=== PATIENT | female | born 1995 | race African-American/Black ===

== ENCOUNTER 2018-02-19 20:51 | Observation (INO) | payer OTHER ==
[~2018-02-19] VITALS: Ht 170.2 cm; Wt 71.4 kg
[~2018-02-19 20:51] MED LIST: CONCERTA PO; CYCL10TA9 PO; HYDR-3600 PO; HYDR1TAB8 OP; IBUP800T26 PO; LAMO200T14 PO; MINO100C2 PO; NALTREXONE PO; QTP100T PO; SERT25TA PO; SULF-222 PO; TRAZ150T42 PO; ZPR20C PO
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
[2018-02-19] MEDS ORDERED: KETOROLAC 30 MG/ML VIAL IVP ONE (21:15)
[2018-02-19] MEDS ORDERED: fentaNYL INJECTION 100 MCG/2 ML AMP IVP ONE (21:15)
[2018-02-19 21:16] LABS: BASOPHILS # (AUTO) 0.1 10^3/uL (0.0-0.1); BASOPHILS % (AUTO) 1 % (0-10); EOSINOPHILS # (AUTO) 0.2 10^3/uL (0.0-0.3); EOSINOPHILS % (AUTO) 2 % (0-10); HEMATOCRIT 37 % (35-52); HEMOGLOBIN 13.1 G/DL (11.5-16.0); LYMPHOCYTES # (AUTO) 3.5 X 10^3 (1.0-4.0); LYMPHOCYTES % (AUTO) 36 % (12-44); MEAN CORPUSCULAR HEMOGLOBIN 34 PG (25-34); MEAN CORPUSCULAR HGB CONC 35 G/DL (32-36); MEAN CORPUSCULAR VOLUME 96 FL (80-99); MEAN PLATELET VOLUME 10.6 FL (7.4-10.4); MONOCYTES # (AUTO) 0.6 X 10^3 (0.0-1.0); MONOCYTES % (AUTO) 6 % (0-12); NEUTROPHILS # (AUTO) 5.5 X 10^3 (1.8-7.8); NEUTROPHILS % (AUTO) 56 % (42-75); PLATELET COUNT 301 10^3/uL (130-400); RED BLOOD COUNT 3.91 10^6/uL (4.35-5.85); RED CELL DISTRIBUTION WIDTH 13.7 % (10.0-14.5); WHITE BLOOD COUNT 9.9 10^3/uL (4.3-11.0)
[2018-02-19] MEDS ORDERED: IOHEXOL 350 MG/ML 100 ML (OMNIPAQUE 350) VIAL IV ONE (21:30)
[2018-02-19] MEDS ORDERED: NS 100 ML (IVPB) BAG IV ONE (21:30)
[2018-02-19] MEDS ORDERED: oxyCODONE/APAP 5/325MG (PERCOCET 5) TABLET PO ONE (23:00)
[2018-02-19] MEDS ORDERED: fentaNYL INJECTION 100 MCG/2 ML AMP IVP PRN (23:00)
[2018-02-20] VITALS (7 sets, daily range): BP systolic 97–112; BP diastolic 52–74
[2018-02-20] MEDS ORDERED: ONDANSETRON 4 MG/2 ML (SDV) Z0FRAN IV PRN (00:30)
[2018-02-20] MEDS: NS IV 1000 ML 1,000 ML IV SCH ×2 (01:05→10:13)
[2018-02-20] MEDS: oxyCODONE/APAP 5/325MG (PERCOCET 5) TABLET PO SCH ×4 (01:21→12:38)
[2018-02-20] MEDS: fentaNYL INJECTION 100 MCG/2 ML AMP IV PRN ×2 (01:30→06:41)
[2018-02-20] MEDS ORDERED: RT-ALBUTEROL SULF 2.5 MG/3 ML PRE-MIX VIAL INH PRN (01:30)
[2018-02-20] MEDS ORDERED: RT-ALBUTEROL SULF 2.5 MG/3 ML PRE-MIX VIAL INH SCH (08:00)
--- NOTE | 2018-02-20 08:33 | Diagnostic Imaging Report ---
PROCEDURE: CT chest, abdomen, and pelvis with contrast. TECHNIQUE: Multiple contiguous axial images were obtained through the chest, abdomen, and pelvis after the administration of intravenous contrast. INDICATION: Left-sided chest and abdominal pain after trauma. COMPARISON: None available. FINDINGS: CHEST: Normal thyroid. No subclavicular axillary lymphadenopathy. No evidence of mediastinal hemorrhage. No mediastinal or hilar lymphadenopathy. Normal heart size without pericardial effusion. Normal caliber thoracic aorta without evidence of acute traumatic injury. No pleural effusion or pneumothorax. No pulmonary consolidations to indicate laceration or contusion. There are acute fractures of the anterior left 8th through 10th ribs which are mildly displaced. No additional acute rib fracture. ABDOMEN AND PELVIS: No free intraperitoneal air or fluid. The liver and spleen enhance normally without evidence of subcapsular hematoma or laceration. The adrenals, gallbladder, and pancreas are normal. The kidneys enhance symmetrically without evidence of traumatic injury. Postcontrast imaging demonstrates opacification of normal caliber ureters and the urinary bladder without evidence of ureteral injury or bladder rupture. No dilated loops of bowel. Normal caliber bowel aorta without evidence of retroperitoneal hemorrhage. No abdominal or pelvic lymphadenopathy. No acute fracture of the pelvis or proximal femurs. THORACOLUMBAR SPINE: No acute fracture or traumatic malalignment. IMPRESSION: 1. Acute mildly displaced fractures of the anterior left 8th through 10th ribs. 2. No pneumothorax, pleural effusion, or pulmonary contusion. 3. No acute traumatic injury in the abdomen or pelvis. Specifically, no splenic laceration or subcapsular hematoma. 4. Findings are in agreement with the preliminary report. Dictated by: Dictated on workstation # [id number]
--- NOTE | 2018-02-20 09:17 | Diagnostic Imaging Report ---
INDICATION: Rib fracture. FINDINGS: Heart size is normal. Lungs are clear. There is no pleural effusion or pneumothorax. Mediastinum is unremarkable. There are fractures of the left eighth, ninth and 10th ribs anterolaterally. IMPRESSION: No acute cardiopulmonary abnormality. Fractures of the left eighth through 10th ribs anterolaterally. Dictated by: Dictated on workstation # [id number]
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
[2018-02-20] MEDS ORDERED: IBUPROFEN 800 MG (MOTRIN) TAB PO SCH (13:00)
[2018-02-20] MEDS ORDERED: HYDR-34 PO (13:34)
--- NOTE | 2018-02-20 13:36 | Discharge Inst-Surgical ---
D/C Lap Instructions-JOLENE New, Converted, or Re-Newed RX: RX on Chart Follow Up Appt in 2 weeks F/U CXR around 2 weeks. Activity as tolerated No driving for 24 hours No driving while on pain medications Incentive Spirometry use every 2 hours while awake Regular Diet Symptoms to Report: Fever over 101 degree F, Nausea/Vomiting Infection Signs and Symptoms to report: Increased redness, Foul odor of wound, Increased drainage Bathing instructions: May shower Operative Area Clean/Dry; Keep incision clean/dry If any problems/questions: Contact your physician or go to Emergency Room JAKOB FERNÁNDEZ MD Feb 20, 2018 1:36 pm
--- NOTE | 2018-02-21 12:51 | Physician Query-Final Dx ---
LUISA GALVEZ 02/21/18 1251: Final Diagnosis Give Final Diagnosis Please give Final Diagnosis JAKOB FERNÁNDEZ MD 02/21/18 1328: Final Diagnosis Give Final Diagnosis trauma-left rib fx 8-10. LUISA GALVEZ Feb 21, 2018 12:51 JAKOB FERNÁNDEZ MD Feb 21, 2018 13:28
== END 2018-02-20 13:35 | disposition home or self-care (01) ==
LOC: EDUNIT# 20:51 → ER 20:53 → 4TH 20:54 → UNDOADMOB 22:45 → 4TH 22:45 → UNDODISOB 02-20 14:40
PROVIDERS: ADMIT Surgery; ATTEND Surgery
DX: S22.41XA Multiple fractures of ribs, right side, initial encounter for closed fracture (principal); Z72.89 Other problems related to lifestyle; F12.90 Cannabis use, unspecified, uncomplicated; F41.9 Anxiety disorder, unspecified; F31.9 Bipolar disorder, unspecified; W16.132A Fall into natural body of water striking side causing other injury, initial encounter; Y92.64 Mine or pit as the place of occurrence of the external cause; Y93.19 Activity, other involving water and watercraft
CPT/HCPCS: 36415; 71046; 71260; 74177; 80320; 84703; 85025; 94640; 94664; 94760; 96374; 96375; 96376; G0378

== ENCOUNTER 2018-08-20 14:22 | Emergency (ER) | payer OTHER ==
[~2018-08-20] VITALS: Ht 170.2 cm; Wt 68.0 kg
[~2018-08-20 14:22] MED LIST changes: +HYDR-34 PO
[2018-08-20] MEDS ORDERED: NS IV 1000 ML 1,000 ML IV SCH (14:30)
[2018-08-20 14:37] LABS: BASOPHILS % (AUTO) 0 % (0-10); EOSINOPHILS % (AUTO) 0 % (0-10); HEMATOCRIT 38 % (35-52); HEMOGLOBIN 12.8 G/DL (11.5-16.0); LYMPHOCYTES # (AUTO) 3.2 X 10^3 (1.0-4.0); LYMPHOCYTES % (AUTO) 32 % (12-44); MEAN CORPUSCULAR HEMOGLOBIN 32 PG (25-34); MEAN CORPUSCULAR HGB CONC 34 G/DL (32-36); MEAN CORPUSCULAR VOLUME 93 FL (80-99); MEAN PLATELET VOLUME 10.2 FL (7.4-10.4); MONOCYTES # (AUTO) 0.7 X 10^3 (0.0-1.0); MONOCYTES % (AUTO) 7 % (0-12); NEUTROPHILS # (AUTO) 5.8 X 10^3 (1.8-7.8); NEUTROPHILS % (AUTO) 60 % (42-75); PLATELET COUNT 302 10^3/uL (130-400); RED CELL DISTRIBUTION WIDTH 13.9 % (10.0-14.5); WHITE BLOOD COUNT 9.8 10^3/uL (4.3-11.0)
[2018-08-20 15:00] LABS: ALANINE AMINOTRANSFERASE 14 U/L (0-55); ALBUMIN 4.6 GM/DL (3.2-4.5); ALKALINE PHOSPHATASE 75 U/L (40-136); BILIRUBIN,TOTAL 0.9 MG/DL (0.1-1.0); BUN/CREATININE RATIO 11; CALCIUM 9.6 MG/DL (8.5-10.1); CARBON DIOXIDE 22 MMOL/L (21-32); CHLORIDE 105 MMOL/L (98-107); GFR ESTIMATED > 60; GLUCOSE 113 MG/DL (70-105); SALICYLATE < 5.0 MG/DL (5.0-20.0); SODIUM 141 MMOL/L (135-145); TOTAL PROTEIN 8.1 GM/DL (6.4-8.2)
[2018-08-20] MEDS ORDERED: LORazepam INJ 2 MG/ML (ATIVAN) VIAL IVP ONE (15:00)
[2018-08-20 15:14] LABS: ACETAMINOPHEN < 10 UG/ML (10-30)
[2018-08-20] MEDS ORDERED: KCL 20 MEQ TAB (K-DUR) PO ONE (16:00)
[2018-08-20 16:47] LABS: BILIRUBIN,URINE NEGATIVE (NEGATIVE); CLARITY,URINE CLEAR; COLOR,URINE YELLOW; GLUCOSE, URINE (UA) NEGATIVE (NEGATIVE); KETONES,URINE 2+ (NEGATIVE); LEUKOCYTE ESTERASE ,URINE NEGATIVE (NEGATIVE); NITRITE,URINE NEGATIVE (NEGATIVE); PH,URINE 6.5 (5-9); PROTEIN,URINE 1+ (NEGATIVE); UROBILINOGEN,URINE NORMAL (NORMAL)
[2018-08-20 16:49] LABS: HCG,QUALITATIVE URINE NEGATIVE (NEGATIVE)
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
[2018-08-20 16:57] LABS: BACTERIA,URINE NEGATIVE /HPF; RBC,URINE 0-2 /HPF; SQUAMOUS EPITHELIAL CELL,UR 0-2 /HPF
[2018-08-20 16:58] LABS: AMPHETAMINE SCREEN, URINE POSITIVE (NEGATIVE); BARBITURATE SCREEN URINE NEGATIVE (NEGATIVE); BENZODIAZEPINES SCREEN URINE NEGATIVE (NEGATIVE); CANNABINOID SCREEN, URINE POSITIVE (NEGATIVE); COCAINE SCREEN URINE NEGATIVE (NEGATIVE); METHADONE STAT NEGATIVE (NEGATIVE); METHAMPHETAMINE SCREEN URINE S POSITIVE (NEGATIVE); OPIATE SCREEN URINE NEGATIVE (NEGATIVE); OXYCODONE STAT NEGATIVE (NEGATIVE); PROPOXYPHENE STAT NEGATIVE (NEGATIVE); TRICYCLIC ANTIDEPRESSANTS SCRE NEGATIVE (NEGATIVE)
[2018-08-20 18:00] VITALS: BP 128/80
== END 2018-08-20 18:00 | disposition home or self-care (01) ==
LOC: MERGE 14:23 → EDBD 14:23 → ER 14:23
DX: F15.10 Other stimulant abuse, uncomplicated (principal); E87.6 Hypokalemia
CPT/HCPCS: 36415; 80053; 80306; 80320; 80329; 81000; 84443; 84703; 85025; 93005; 93041; 96361; 96374

== ENCOUNTER 2018-08-24 11:43 | Emergency (ER) | payer OTHER ==
[~2018-08-24] VITALS: Ht 170.2 cm; Wt 71.4 kg
[2018-08-24 12:07] VITALS: BP 101/57
== END 2018-08-24 13:06 | disposition left against medical advice (07) ==
LOC: ER 11:43 → EDUNIT# 11:43 → ER 13:06
DX: F29 Unspecified psychosis not due to a substance or known physiological condition (principal)
CPT/HCPCS: 99281